=== PATIENT | female | born 1945 | race Caucasian/White ===

== ENCOUNTER 2020-03-09 15:18 | Emergency (ER) | payer OTHER ==
[~2020-03-09] VITALS: Ht 162.6 cm; Wt 59.0 kg
--- NOTE | 2020-03-09 15:37 | NUR ---
SEEN AND EVALUATED BY DR. AMEZQUITA. Patient does not wish to proceed with medical care recommended by Dr. Amezquita. Patient given information related to possible complications, up to and including , which could occur as a result of leaving the hospital at this time. Patient verbalizes understanding of risks involved due to leaving against medical advice. Patient has signed AMA form.
[2020-03-09 15:41] VITALS: BP 145/68
== END 2020-03-09 15:42 | disposition left against medical advice (07) ==
LOC: ER 15:22
DX: T23.001A Burn of unspecified degree of right hand, unspecified site, initial encounter (principal); T20.07XA Burn of unspecified degree of neck, initial encounter; I10 Essential (primary) hypertension; I25.10 Atherosclerotic heart disease of native coronary artery without angina pectoris; F17.200 Nicotine dependence, unspecified, uncomplicated; Z98.890 Other specified postprocedural states; X08.8XXA Exposure to other specified smoke, fire and flames, initial encounter; Y93.89 Activity, other specified; Y92.098 Other place in other non-institutional residence as the place of occurrence of the external cause; Y99.8 Other external cause status

== ENCOUNTER 2022-04-13 17:35 | Emergency (ER) | payer MEDICARE, OTHER ==
[~2022-04-13] VITALS: Ht 162.6 cm; Wt 59.0 kg
--- NOTE | 2022-04-13 17:40 | NUR ---
RECIVED PT 76 YRS FEMALE CAME BY [facility]AMIC C/O HX DIZZNESS FOR 10 YRS ON AND OFF GOTING WORSE LAST 4 DAYS
--- NOTE | 2022-04-13 18:00 | NUR ---
SEEN BY DR. GUERRA
[2022-04-13 19:00] VITALS: BP 121/60
--- NOTE | 2022-04-13 19:00 | NUR ---
CT SCAN OF HEAD DONE
[2022-04-13] MEDS ORDERED: DIAZ2TAB PO (19:24)
[2022-04-13] MEDS ORDERED: ONDA4TAB5 PO (19:24)
--- NOTE | 2022-04-13 19:30 | NUR ---
HAND OFF TO YOLANDA LEWIS
--- NOTE | 2022-04-13 19:58 | NUR ---
Patient discharged to home in stable condition. Written and verbal after care instructions given. Patient verbalizes understanding of instruction.
== END 2022-04-13 19:59 | disposition home or self-care (01) ==
LOC: ER 17:39
DX: R42 Dizziness and giddiness (principal); I10 Essential (primary) hypertension; F17.200 Nicotine dependence, unspecified, uncomplicated; Z79.899 Other long term (current) drug therapy
CPT/HCPCS: 70450-TC

== ENCOUNTER 2024-12-23 03:18 | Emergency (ER) | payer MEDICARE, OTHER ==
[~2024-12-23] VITALS: Ht 154.9 cm; Wt 57.2 kg
[~2024-12-23 03:18] MED LIST: DIAZ2TAB PO; ONDA4TAB5 PO
[2024-12-23 04:48] LABS: BASOPHILS # (AUTO) 0.1 K/uL (0.0-0.2); BASOPHILS % (AUTO) 0.9 % (0.0-2.0); EOSINOPHILS # (AUTO) 0.4 K/uL (0.0-0.7); EOSINOPHILS % (AUTO) 4.1 % (0.0-6.0); HEMATOCRIT 34 % (33-45); HEMOGLOBIN 11.2 g/dL (11.5-14.8); LYMPHOCYTES # (AUTO) 2.9 K/uL (0.8-4.8); LYMPHOCYTES % (AUTO) 27.3 % (20.0-44.0); MEAN CORPUSCULAR HEMOGLOBIN 28 PG (26.0-33.0); MEAN CORPUSCULAR HGB CONC 33 g/dl (31.0-36.0); MEAN CORPUSCULAR VOLUME 85 fL (82-100); MONOCYTES # (AUTO) 0.8 K/uL (0.1-1.30); MONOCYTES % (AUTO) 7.4 % (2.0-12.0); NEUTROPHILS # (AUTO) 6.4 K/uL (1.8-8.9); NEUTROPHILS % (AUTO) 60.3 % (43.0-81.0); PLATELET COUNT (AUTO) 375 K/uL (150-450); RED BLOOD CELL COUNT(AUTO) 4.07 MIL/uL (4.0-5.2); RED CELL DISTRIBUTION WIDTH 14.2 % (11.5-15.0); WHITE BLOOD COUNT (AUTO) 10.7 K/uL (4.3-11.0)
[2024-12-23 04:57] LABS: CALCIUM, SERUM 9.4 mg/dL (8.5-10.1); CREATININE 0.7 mg/dL (0.6-1.3); POTASSIUM 4.3 mmol/L (3.5-5.1)
[2024-12-23 05:02] LABS: INR 1.03 (0.91-1.10); PARTIAL THROMBOPLASTIN TIME 28.6 SEC (24.3-34.3); PROTHROMBIN TIME 10.9 SECS (9.2-11.1)
[2024-12-23] MEDS ORDERED: hydrALAZINE HCL IV 20 MG VIAL ONE (05:19)
[2024-12-23] MEDS: IV NS 0.9% 1,000 ML BAG IV ONE (05:29)
[2024-12-23] MEDS: hydrALAZINE HCL IV 20 MG VIAL IV ONE (05:30)
[2024-12-23 05:34] VITALS: BP 156/71; TEMP 97.9; O2SAT 97
== END 2024-12-23 05:35 | disposition home or self-care (01) ==
LOC: ER 03:21
DX: I10 Essential (primary) hypertension (principal); E87.1 Hypo-osmolality and hyponatremia; R42 Dizziness and giddiness; F17.200 Nicotine dependence, unspecified, uncomplicated; Z95.5 Presence of coronary angioplasty implant and graft; Z86.79 Personal history of other diseases of the circulatory system; Z87.19 Personal history of other diseases of the digestive system
CPT/HCPCS: 99285; 71045; 93005; 85025; 80048; 36415; 85730; J0360; J7030

== ENCOUNTER 2025-01-21 23:59 | Emergency (ER) | payer MEDICARE, OTHER ==
[~2025-01-21] VITALS: Ht 157.5 cm; Wt 57.2 kg
[2025-01-22 00:27] VITALS: TEMP 98.5
[2025-01-22 01:02] LABS: BASOPHILS # (AUTO) 0.1 K/uL (0.0-0.2); BASOPHILS % (AUTO) 0.6 % (0.0-2.0); EOSINOPHILS # (AUTO) 0.4 K/uL (0.0-0.7); EOSINOPHILS % (AUTO) 3.1 % (0.0-6.0); HEMATOCRIT 35 % (33-45); HEMOGLOBIN 11.4 g/dL (11.5-14.8); LYMPHOCYTES # (AUTO) 0.9 K/uL (0.8-4.8); LYMPHOCYTES % (AUTO) 7.3 % (20.0-44.0); MEAN CORPUSCULAR HEMOGLOBIN 28 PG (26.0-33.0); MEAN CORPUSCULAR HGB CONC 33 g/dl (31.0-36.0); MEAN CORPUSCULAR VOLUME 86 fL (82-100); MONOCYTES # (AUTO) 0.6 K/uL (0.1-1.30); NEUTROPHILS # (AUTO) 10.6 K/uL (1.8-8.9); PLATELET COUNT (AUTO) 349 K/uL (150-450); RED BLOOD CELL COUNT(AUTO) 4.07 MIL/uL (4.0-5.2); RED CELL DISTRIBUTION WIDTH 15.5 % (11.5-15.0); WHITE BLOOD COUNT (AUTO) 12.6 K/uL (4.3-11.0)
[2025-01-22 01:09] LABS: CALCIUM, SERUM 9.6 mg/dL (8.5-10.1); CREATININE 0.9 mg/dL (0.6-1.3); POTASSIUM 3.9 mmol/L (3.5-5.1)
[2025-01-22] MEDS ORDERED: methylPREDNISolone SOD SUCC 125 MG/2ML VIAL ONE (01:15)
[2025-01-22] MEDS: CODEINE/PROMETHAZINE HCL 5 ML UDC PO STA (01:17)
[2025-01-22 01:23] LABS: ALBUMIN 3.7 g/dL (3.4-5.0); BILIRUBIN,TOTAL 0.3 mg/dL (0.2-1.0); TOTAL PROTEIN, SERUM 7.8 g/dL (6.4-8.2)
[2025-01-22 01:24] VITALS: O2SAT 98
[2025-01-22] MEDS: ALBUTEROL FS 2.5 MG/3 ML VIAL.NEB NEB ONE (01:24)
[2025-01-22] MEDS ORDERED: ALBUTEROL FS 2.5 MG/3 ML VIAL.NEB ONE (01:26)
[2025-01-22 01:34] VITALS: O2SAT 100
[2025-01-22] MEDS: methylPREDNISolone SOD SUCC 125 MG/2ML VIAL IV ONE (01:37)
[2025-01-22] MEDS ORDERED: AZIT250T13 PO (02:02)
[2025-01-22] MEDS ORDERED: PRED20TA PO (02:04)
[2025-01-22] MEDS ORDERED: ALBU8.5H8 INH (02:04)
[2025-01-22] MEDS ORDERED: BENZ-13 PO (02:04)
[2025-01-22] MEDS ORDERED: NEOM10DR11 RIGHT EAR (02:04)
[2025-01-22 02:05] LABS: APPEARANCE,URINE CLEAR (CLEAR); BILIRUBIN,URINE NEGATIVE (NEGATIVE); BLOOD, URINE TRACE-INTA Ery/uL (NEGATIVE); COLOR,URINE YELLOW (YELLOW); KETONES,URINE NEGATIVE (NEGATIVE); LEUKOCYTE ESTERASE ,URINE 1+ (NEGATIVE); NITRITE, URINE NEGATIVE (NEGATIVE); PROTEIN,URINE NEGATIVE (NEGATIVE); UGLUCOSE NEGATIVE (NEGATIVE); UROBILINOGEN,URINE 0.2 EU/dL (0.2)
[2025-01-22 02:06] LABS: ADD URINE CULTURE YES; BACTERIA,URINE Few /HPF (None Seen); SQUAMOUS EPITHELIAL CELL,UR Rare /HPF (None Seen)
[2025-01-22 04:08] VITALS: BP 119/64; O2SAT 100
== END 2025-01-22 02:15 | disposition home or self-care (01) ==
LOC: ER 01-22 00:02
DX: J40 Bronchitis, not specified as acute or chronic (principal); R05.9 Cough, unspecified; I10 Essential (primary) hypertension; F17.200 Nicotine dependence, unspecified, uncomplicated; J44.9 Chronic obstructive pulmonary disease, unspecified; I25.10 Atherosclerotic heart disease of native coronary artery without angina pectoris; Z79.52 Long term (current) use of systemic steroids; Z95.5 Presence of coronary angioplasty implant and graft; Z20.822 Contact with and (suspected) exposure to COVID-19
CPT/HCPCS: 36415; 71045-TC; 80053-TC; 81001; 83880; 84484-TC; 85025-TC; 87040-TC; 87086-TC; J2919